=== PATIENT | male | born 2005 | race Caucasian/White ===

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

== ENCOUNTER → 2023-05-09 | Outpatient (REF) | payer MEDICAID | LOC: M SFHCDERM 16:35 | PROVIDERS: ATTEND Physician Assistant | DX: Z53.9 Procedure and treatment not carried out, unspecified reason (principal) ==

== ENCOUNTER → 2023-06-22 | Outpatient (REF) | payer MEDICAID | LOC: M LAB REF 16:21 | PROVIDERS: ATTEND Nurse Practitioner Family | DX: J00 Acute nasopharyngitis [common cold] (principal) ==